=== PATIENT | female | born 1980 | race Two or more races ===

== ENCOUNTER 2020-11-16 06:45 | Day surgery (SDC) | payer OTHER ==
[~2020-11-16 06:45] MED LIST: LEVOTHYROXINE25 MCG PO; METFORMIN HCL500 M3 PO
== END 2020-11-16 17:30 | disposition home or self-care (01) ==
LOC: CIR.AMB 06:45
PROVIDERS: ATTEND Colon & Rectal Surgery
DX: K62.0 Anal polyp (principal); K64.8 Other hemorrhoids; K64.4 Residual hemorrhoidal skin tags; Z20.828 Contact with and (suspected) exposure to other viral communicable diseases